=== PATIENT | female | born 1995 | race Hispanic/Latino ===

== ENCOUNTER 2018-06-15 04:44 | Inpatient (IN) | payer MEDICAID, OTHER, SELFPAY ==
[2018-06-15] MEDS: Lactated Ringer's 1,000 ML IV SCH ×3 (07:30→18:43)
[2018-06-15] MEDS ORDERED: Promethazine HCl 25 MG/ML VIAL IM PRN ×2 (07:42→16:00)
[2018-06-15] MEDS ORDERED: Lactated Ringer's 1,000 ML IV SCH (07:42)
[2018-06-15] MEDS ORDERED: Lidocaine 1% (PF) 30 ML VIAL SC PRN (07:42)
[2018-06-15] MEDS ORDERED: Ibuprofen 800 MG TAB PO PRN (07:42)
[2018-06-15] MEDS ORDERED: Butorphanol Tartrate 1 MG/ML VIAL SLOW IVP PRN (07:42)
[2018-06-15] MEDS ORDERED: Ondansetron HCl/PF 4 MG/2 ML Vial IVP PRN ×2 (07:42→16:00)
[2018-06-15] MEDS ORDERED: NS w/ Oxytocin 10 units 500 ML IV SCH ×2 (07:42→12:21)
[2018-06-15] MEDS ORDERED: HYDROcodone/Acetaminophen 5/325 mg Tablet PO PRN ×2 (07:42)
--- NOTE | 2018-06-15 07:47 | PDOC.LDHP ---
Labor and Delivery H&P Chief complaint: contractions HPI: 23yo at 40w0d by LMP c/o vag bleeding painful ctx, no LOF, good FM., Prior CS x 1 LTCS for NRFHT Due date: 06/15/18 Dating criteria: last menstrual period Grav: 2 Para: 1 Current complications: none Abnormal US findings: No Past Medical History: denies Current medications: pre-jose l vitamins Previous surgical history: low tranverse CS Allergies/Adverse Reactions: Allergies Allergy/AdvReac Type Severity Reaction Status Date / Time No Known Allergies Allergy Verified 06/15/18 05:11 Social history: none - Physical Exam Vital signs reviewed and normal: yes General: NAD Heart: RRR Lungs: CTAB Abdomen: gravid Extremeties: no edema FHT: category 1 [place] contractions every: 5min - Vaginal Exam cm dilated: 3 Effacement: 90% Station: 0 (arom light mec) - OB Labs Blood type: O RH: positive Antibody Screen: negative HIV: negative RPR: negative 1 hour GCT: negative GBS: negative Urine drug screen: negative Rubella: immune - Assessment L&D Assessment: term patient in labor - Plan Plan: admit to L&D, labor augmentation if indicated, informed consent obtained, anesthesia consult for pain management -: Pt desires TOLAC, prior CS for NRFHT on arrival to L&D, was not induced, documented LTCS approx 18months ago. Disc risk of uterine rupture < 1% with doubling that risk if pitocin is used. IUPC placed now, if labor stalls will be for pitocin aug. Pt wishes to proceed.
[2018-06-15 07:51] LABS: Hemoglobin 10.7 g/dL (12.0-16.0); Mean Corpuscular HGB CONC 33.5 g/dL (32.0-36.0); Mean Corpuscular Hemoglobin 25.9 pg (27.0-31.0); Mean Corpuscular Volume 77.2 fL (78.0-98.0); Mean Platelet Volume 9.7 fL (7.4-10.4); Platelet Count 184 thou/uL (130-400); RBC Distribution Width 12.9 % (11.5-14.5); Red Blood Cell (RBC) Count 4.15 mill/uL (4.20-5.40); White Blood Cell (WBC) Count 11.2 thou/uL (4.8-10.8)
[2018-06-15 08:32] LABS: HBSAg Index 0.21 S/CO (0-0.99); Hep B Surf Ag Non-Reactive S/CO (NonReactive); Syphilis Antibody Nonreactive (Nonreactive); Syphilis Antibody Index 0.04 S/CO (<1.00 Non-Reactive)
--- NOTE | 2018-06-15 12:25 | PDOC.LDPN ---
Labor & Delivery Progress Note - Subjective Subjective: comfortable - Objective Vital signs reviewed and normal: yes General: NAD Uterine fundus: non tender Dilation: 4 Effacement: 90% Station: -1 FHT: category 1 [place] contractions every: 5-6min Plan: labor augmentation
[2018-06-15] MEDS ORDERED: DISCONTINUE ALL PREVIOUS NARCOTICS FS SCH (15:15)
[2018-06-15] MEDS ORDERED: Bupivacaine 0.5% 20 ML, fentaNYL Citrate/PF 400 MCG in Sodium Chloride 0.9% 72 ML EPIDURAL SCH (15:15)
[2018-06-15 15:55] VITALS: BMI 32.9
[2018-06-15] MEDS ORDERED: fentaNYL Citrate/PF 400 MCG, Bupivacaine 0.5% 20 ML in Sodium Chloride 0.9% 72 ML EPIDURAL SCH (16:00)
[2018-06-15] MEDS ORDERED: Lactated Ringer's 500 ML IV PRN (16:00)
[2018-06-15] MEDS ORDERED: Acetaminophen 325 MG TAB PO PRN (16:00)
[2018-06-15] MEDS ORDERED: Naloxone HCl 0.4 mg/ml Vial IVP PRN ×2 (16:00)
[2018-06-15] MEDS ORDERED: Eucerin (Mineral Oil/Petrolatum,White) 30 gm Jar TOP PRN (16:00)
[2018-06-15] MEDS ORDERED: ePHEDrine/0.9% NaCl/PF SYRINGE 50 mg/10 ml SLOW IVP PRN (16:00)
[2018-06-15] MEDS ORDERED: Communication Order-Pharmacy FS SCH (16:00)
[2018-06-15] MEDS ORDERED: diphenhydrAMINE 50 MG/ML VIAL IVP PRN (16:00)
[2018-06-15] MEDS ORDERED: Bupivacaine HCl 0.25%/Epi 0.0005/PF 10 ML VIAL FS ONE (21:00)
[2018-06-15] MEDS: NS / Oxytocin 40 units/1000ml 1,000 ML IV PRN ×2 (21:30→22:36)
[2018-06-15] MEDS: Misoprostol 200 MCG TAB ONE (21:37)
--- NOTE | 2018-06-15 21:44 | PDOC.OPDEL ---
OB Operative/Delivery Note Delivery Dr/Surgeon: Edu Assist: n/a Pre-Delivery Diagnosis: medically indicated induction Procedure/Post Delivery Dx: vaginal delivery after CS Weeks gestation: 40 Anesthesia: epidural - Findings A Sex: male - 1 min: 8 - 5 min: 9 - Additional Findings/Plan Placenta delivered: spontaneous Repaired Obstetrical Laceration: 1st degree (repaired with 2-0 vicryl for hemostasis in figure of eight) Estimated blood loss: 400 qbl pending Post delivery plan: routine recovery
[2018-06-15] MEDS ORDERED: Misoprostol 200 MCG TAB VAG SCH (21:45)
[2018-06-16] MEDS ORDERED: HYDROcodone/Acetaminophen 5/325 mg Tablet PO PRN ×2 (00:50)
[2018-06-16] MEDS ORDERED: Ondansetron HCl/PF 4 MG/2 ML Vial IVP PRN (00:50)
[2018-06-16] MEDS ORDERED: Milk Of Magnesia 30 ML UDCUP PO PRN (00:50)
[2018-06-16] MEDS ORDERED: NS / Oxytocin 40 units/1000ml 1,000 ML IV SCH (00:50)
[2018-06-16] MEDS ORDERED: Preparation H Ointment 28 GM TUBE PR PRN (00:50)
[2018-06-16] MEDS ORDERED: Lanolin Ointment 7 GM TUBE TOP PRN (00:50)
[2018-06-16] MEDS ORDERED: diphenhydrAMINE 25 MG CAP PO PRN (00:50)
[2018-06-16] MEDS ORDERED: Benzocaine/Menthol 20-0.5% 60 ML CAN TOP PRN (00:50)
[2018-06-16] MEDS ORDERED: Bisacodyl 10 MG SUPP PR PRN (00:50)
[2018-06-16] MEDS ORDERED: Adacel (T-DAP) 0.5 ML VIAL IM ONE (02:00)
[2018-06-16] MEDS ORDERED: Ibuprofen 800 MG TAB PO SCH (02:00)
[2018-06-16] MEDS: Misoprostol 200 MCG TAB ONE (06:14)
--- NOTE | 2018-06-16 07:58 | PDOC.PP ---
Post Progress Note Post Day #: 1 Subjective: Doing well. No sx of fever or chills. Minimal lochia. Formula feeding. Cortes still in place. PO intake tolerated: yes Flatus: yes Ambulation: yes Vital Signs (12 hours) Temp Pulse Resp BP 06/16/18 06:00 99.1 F 65 18 06/16/18 03:40 99.1 F 65 18 06/16/18 03:30 99.1 F 65 18 117/72 06/16/18 00:55 72 16 117/68 06/16/18 00:20 100.3 F H 72 18 120/69 06/15/18 20:00 98.1 F 72 16 Weight Weight 186 lb - Physical Examination General: NAD Cardiovascular: no m/r/g Respiratory: non-labored breathing Abdominal: no distention, appropriately TTP Fundus firm & at: below umbilicus Extremities: negative homans (B) Neurological: no gross focal deficits Psychiatric: A&Ox3, normal affect Result Diagrams: 06/15/18 07:15 Additional Labs: Post Labs Blood Type O POSITIVE 06/15/18 07:15 Hep Bs Antigen Non-Reactive S/CO (NonReactive) 06/15/18 07:15 (1) (vaginal after ) Code(s): O34.219 - MATERNAL CARE FOR UNSP TYPE SCAR FROM PREVIOUS DEL Status: Acute (2) Anemia Code(s): D64.9 - ANEMIA, UNSPECIFIED Status: Acute Qualifiers: Anemia type: iron deficiency - Assessment/Plan PPD1 VSS Continue PP care. Reviewed T max 100.3, no si/sx of infection at this time. Monitor temp and CBC today. Plan for d/c home tomorrow.
[2018-06-16] MEDS: Ferrous Sulfate 325 MG TAB PO SCH ×2 (08:07→17:19)
[2018-06-16] MEDS: Docusate Calcium (SURFAK) 240 MG CAP PO SCH ×2 (09:36→22:19)
[2018-06-16] MEDS: Prenatal Vitamin 1 TAB PO SCH (09:36)
[2018-06-16 10:11] LABS: #Basophils 0.1 thou/uL (0.0-0.2); #Lymphocytes 2.6 thou/uL (1.20-3.40); #Neutrophils 12.8 thou/uL (1.40-6.50); %Basophils 0.4 % (0.0-1.0); %Eosinophils 0.1 % (0.0-10.0); %Lymphocytes 15.6 % (21.0-51.0); %Monocytes 6.1 % (0.0-10.0); %Neutrophils 77.9 % (42.0-75.0); Hemoglobin 9.5 g/dL (12.0-16.0); Mean Corpuscular HGB CONC 33.3 g/dL (32.0-36.0); Mean Corpuscular Hemoglobin 26.2 pg (27.0-31.0); Mean Corpuscular Volume 78.8 fL (78.0-98.0); Platelet Count 189 thou/uL (130-400); RBC Distribution Width 12.9 % (11.5-14.5); Red Blood Cell (RBC) Count 3.63 mill/uL (4.20-5.40); White Blood Cell (WBC) Count 16.5 thou/uL (4.8-10.8)
[2018-06-16] MEDS: Ibuprofen 800 MG TAB PO SCH ×2 (13:41→22:19)
[2018-06-16 23:17] VITALS: TEMP 98.1
[2018-06-17] MEDS: Ibuprofen 800 MG TAB PO SCH (05:55)
--- NOTE | 2018-06-17 08:06 | PDOC.PP ---
Post Progress Note Post Day #: 2 PO intake tolerated: yes Flatus: yes Ambulation: yes Weight Weight 186 lb - Physical Examination General: NAD Cardiovascular: RRR Respiratory: non-labored breathing Abdominal: lochia, no distention, appropriately TTP Fundus firm & at: umb-2 Extremities: negative homans (B) Skin: no rash Psychiatric: normal affect Result Diagrams: 06/16/18 09:35 Additional Labs: Post Labs Blood Type O POSITIVE 06/15/18 07:15 Hep Bs Antigen Non-Reactive S/CO (NonReactive) 06/15/18 07:15 - Assessment/Plan PPD2 s/p VSSAF No e/o infection on exam, fundus nontender Doing well Bottlefeeding Rh pos RImm DC home FU 6 wk
[2018-06-17 08:34] VITALS: BP 108/68
[2018-06-17] MEDS: Prenatal Vitamin 1 TAB PO SCH (08:59)
[2018-06-17] MEDS: Ferrous Sulfate 325 MG TAB PO SCH (08:59)
[2018-06-17] MEDS: Docusate Calcium (SURFAK) 240 MG CAP PO SCH (08:59)
== END 2018-06-17 12:45 | disposition home or self-care (01) | DRG 775 ==
LOC: L&D/OP 04:44 → L&D 10:01 → 3SW 06-16 00:35
PROVIDERS: ADMIT Student in an Organized Health Care Education/Training Program; ATTEND Student in an Organized Health Care Education/Training Program
PROC: 10E0XZZ Delivery of Products of Conception, External Approach (ICD-10-PCS; principal; 2018-06-15)
PROC: 0HQ9XZZ Repair Perineum Skin, External Approach (ICD-10-PCS; 2018-06-15)
PROC: 10H07YZ Insertion of Other Device into Products of Conception, Via Natural or Artificial Opening (ICD-10-PCS; 2018-06-15)
DX: O70.0 First degree perineal laceration during delivery (principal); Z3A.40 40 weeks gestation of pregnancy; Z37.0 Single live birth; O99.02 Anemia complicating childbirth; D50.9 Iron deficiency anemia, unspecified; O34.219 Maternal care for unspecified type scar from previous cesarean delivery
CPT/HCPCS: 36415; 51702; 85025; 85027; 86780; 86850; 86900; 86901; 87340; 99285; J2001; J2405; J3010; J3490; J7050